=== PATIENT | male | born 1980 | race Caucasian/White ===

== ENCOUNTER 2021-12-12 11:38 | Outpatient (REF) | payer OTHER, SELFPAY ==
--- NOTE | ~2021-12-12 | XR_ITS ---
EXAMINATION: XR SHOULDER, BILATERAL XR CHEST CLINICAL INFORMATION: Pain. COMPARISON: None TECHNIQUE: 4 views each shoulder. 2 views chest x-ray. FINDINGS: RIGHT SHOULDER: There is a small calcification adjacent to lesser trochanter likely calcific bursitis. No visible acute fracture or dislocation seen. The AC joint and the glenoid joint space is maintained normal. The soft tissues are normal. LEFT SHOULDER: The glenohumeral joint and AC joint is intact. No bony erosive changes. There is no visible fracture or dislocation. The soft tissues are normal. CHEST: Both lungs are well expanded and clear of acute process. The heart size and pulmonary vascularity is normal. No gross bony abnormality seen. XR/XR chest 2V IMPRESSION: Calcific bursitis along lesser trochanter right shoulder. There is no visible acute fracture or dislocation seen in either shoulder. Unremarkable chest exam.
--- NOTE | ~2021-12-12 | XR_ITS ---
EXAMINATION: XR SHOULDER, BILATERAL XR CHEST CLINICAL INFORMATION: Pain. COMPARISON: None TECHNIQUE: 4 views each shoulder. 2 views chest x-ray. FINDINGS: RIGHT SHOULDER: There is a small calcification adjacent to lesser trochanter likely calcific bursitis. No visible acute fracture or dislocation seen. The AC joint and the glenoid joint space is maintained normal. The soft tissues are normal. LEFT SHOULDER: The glenohumeral joint and AC joint is intact. No bony erosive changes. There is no visible fracture or dislocation. The soft tissues are normal. CHEST: Both lungs are well expanded and clear of acute process. The heart size and pulmonary vascularity is normal. No gross bony abnormality seen. XR/XR shoulder RT min 2V IMPRESSION: Calcific bursitis along lesser trochanter right shoulder. There is no visible acute fracture or dislocation seen in either shoulder. Unremarkable chest exam.
--- NOTE | ~2021-12-12 | XR_ITS ---
EXAMINATION: XR SHOULDER, BILATERAL XR CHEST CLINICAL INFORMATION: Pain. COMPARISON: None TECHNIQUE: 4 views each shoulder. 2 views chest x-ray. FINDINGS: RIGHT SHOULDER: There is a small calcification adjacent to lesser trochanter likely calcific bursitis. No visible acute fracture or dislocation seen. The AC joint and the glenoid joint space is maintained normal. The soft tissues are normal. LEFT SHOULDER: The glenohumeral joint and AC joint is intact. No bony erosive changes. There is no visible fracture or dislocation. The soft tissues are normal. CHEST: Both lungs are well expanded and clear of acute process. The heart size and pulmonary vascularity is normal. No gross bony abnormality seen. XR/XR shoulder LT min 2V IMPRESSION: Calcific bursitis along lesser trochanter right shoulder. There is no visible acute fracture or dislocation seen in either shoulder. Unremarkable chest exam.
[2021-12-12 11:58] LABS: MANUAL DIFF FLAG NO
[2021-12-12 12:25] LABS: Basophils Percent Auto 0.7 % (0-2); Eosinophils Percent Auto 0.7 % (0-4); Hemoglobin 16.1 g/dl (14.0-18.0); Imm Gran Abs Auto 0.02 X10*3/uL (0.00-0.03); Imm Gran Pct Auto 0.5 % (0.0-0.4); Lymphocytes Absolute Auto 1.3 X10*3/uL (1.2-4.9); Lymphocytes Percent Auto 32.9 % (20-40); Mean Corpuscular HGB Conc 33.5 g/dl (31.0-36.0); Mean Corpuscular Hemoglobin 29.4 pg (27.0-33.0); Mean Corpuscular Volume 87.6 fL (80.0-98.0); Mean Platelet Volume 9.4 fL (9.4-12.4); Monocytes Absolute Auto 0.4 X10*3/uL (0.1-1.2); Monocytes Percent Auto 8.6 % (2-11); Neutrophils Absolute Auto 2.3 x10*3/uL (2.0-8.3); Neutrophils Percent Auto 56.6 % (45-73); Platelet Count 193 X10*3/uL (160-400); Red Blood Count 5.48 X10*6/uL (4.60-5.80); Red Cell Distribution Width 12.8 % (11.0-16.0); White Blood Count 4.1 X10*3/uL (4.8-10.8)
[2021-12-12 12:48] LABS: Alanine Aminotransferase 20 U/L (0-40); Albumin Level 4.3 g/dL (3.5-5.0); Alkaline Phosphatase 73 U/L (39-117); Anion Gap 13 (12-20); Aspartate Amino Transferase 20 U/L (5-37); Bilirubin Total 0.7 mg/dL (0.0-1.0); Blood Urea Nitrogen 20 mg/dL (9-16); C Reactive Protein 0.04 mg/dL (< or = 0.50); Calcium 9.2 mg/dL (8.4-10.2); Carbon Dioxide 28 mmol/L (22-29); Chloride 103 mmol/L (96-108); Estimated Glomerular Filt Rate > 60; Glucose Random 99 mg/dL (60-115); Potassium 4.7 mmol/L (3.3-5.1); Sodium 139 mmol/L (135-145); Total Protein 7.1 g/dL (6.5-8.0)
[2021-12-12 13:06] LABS: Erythrocyte Sedimentation Rate 1 MM/HR (0-15)
[2021-12-12 13:11] LABS: TSH reflex Free T4 0.46 uIU/mL (0.32-4.0)
[2021-12-12 18:15] LABS: CT PCR NOT DETECTED (Not Detect.); NG PCR NOT DETECTED (Not Detect.)
[2021-12-13 03:43] LABS: Syphilis Screen Nonreactive (Nonreactive)
[2021-12-13 04:15] LABS: HBc Num1 0.05 S/CO (0.00-0.79); Hepatitis B Core Antibody Nonreactive (Nonreactive); ~Hepatitis B Surface Antibody NONREACTIVE (Nonreactive)
[2021-12-13 04:20] LABS: HBsAGNum1 0.16 S/CO (0.00-0.99); HIV AB/AG Nonreactive (Nonreactive); HIV Num 1 0.06 S/CO (0.00-0.99); Hepatitis B Surface Antigen Negative (Negative); ~HepC Num1 0.16 S/CO (0.00-0.79); ~Hepatitis C Antibody Nonreactive (Nonreactive)
[2021-12-19 23:22] LABS: HSV 1 IgM IFA Negative (Negative); HSV 2 IgM IFA Negative (Negative)
== END 2021-12-12 11:39 | disposition home or self-care (01) ==
LOC: HO.LAB 11:38
PROVIDERS: PCP Internal Medicine; Visit Provider Internal Medicine
DX: Z11.4 Encounter for screening for human immunodeficiency virus [HIV] (principal); I10 Essential (primary) hypertension; L29.9 Pruritus, unspecified; M25.511 Pain in right shoulder; M25.512 Pain in left shoulder; R05.8 Other specified cough; R21 Rash and other nonspecific skin eruption; Z20.2 Contact with and (suspected) exposure to infections with a predominantly sexual mode of transmission; M79.7 Fibromyalgia; E78.00 Pure hypercholesterolemia, unspecified
CPT/HCPCS: 71046; 73030; 80053; 84443; 85025; 85652; 86140; 86695; 86696; 86704; 86706; 86780; 86803; 87340; 87389; 87491; 87591

== ENCOUNTER 2022-06-13 11:43 | Outpatient (REF) | payer OTHER, SELFPAY ==
--- NOTE | ~2022-06-13 | XR_ITS ---
EXAMINATION: XR HAND, RIGHT CLINICAL INFORMATION: M79.641 - Pain in right hand COMPARISON: None TECHNIQUE: PA, lateral, and oblique views of the right hand. FINDINGS: Normal bony mineralization. No fracture or dislocation. Ulnar variance is neutral. The carpus shows no joint narrowing or erosive change or visible chondrocalcinosis. The MCP and interphalangeal joints show no focal narrowing or erosive change. XR/XR hand RT min 3V IMPRESSION: No focal joint narrowing or erosive change.
--- NOTE | ~2022-06-13 | XR_ITS ---
EXAMINATION: XR CERVICAL SPINE CLINICAL INFORMATION: M43.6 - Torticollis. Pain right hand. COMPARISON: None TECHNIQUE: 4 views of the cervical spine are obtained. FINDINGS: There is straightening of the cervical lordosis with mild rightward tilting secondary to a gentle levocurvature upper thoracic spine. The vertebral bodies are normal in height and there is no vertebral compression, destructive process, or prevertebral soft tissue swelling. The odontoid appears intact. No erosive change. There are degenerative changes C5-C6 and C6-C7 with disc narrowing and vertebral spurring. There is borderline retrolisthesis at C6-C7. XR/XR cervical spine 3V IMPRESSION: 1. Degenerative disc changes C5-C6 and C6-C7 with borderline retrolisthesis C6-C7. 2. No vertebral compression or prevertebral soft tissue swelling.
== END 2022-06-13 11:44 | disposition home or self-care (01) ==
LOC: HO.XRAY 11:43
PROVIDERS: PCP Internal Medicine; Visit Provider Internal Medicine
DX: S69.91XA Unspecified injury of right wrist, hand and finger(s), initial encounter (principal); M43.6 Torticollis; M54.12 Radiculopathy, cervical region
CPT/HCPCS: 72040; 73130

== ENCOUNTER 2022-06-14 09:17 | Outpatient (REF) | payer OTHER, SELFPAY ==
[2022-06-14 11:07] LABS: Appearance Urine Clear; Color Urine Yellow; Glucose Urine UA Negative (Negative); Leukocyte Esterase Urine Negative (Negative); Nitrite Urine Negative (Negative); PH 7.5 (5.0-9.0); Urine Blood Negative (Negative); Urine Ketones Negative (Negative); Urine Protein Negative (Neg-Trace)
[2022-06-14 11:34] LABS: Alanine Aminotransferase 30 U/L (0-40); Albumin Level 4.2 g/dL (3.5-5.0); Alkaline Phosphatase 76 U/L (39-117); Anion Gap 15 (12-20); Aspartate Amino Transferase 28 U/L (5-37); Bilirubin Total 0.4 mg/dL (0.0-1.0); Blood Urea Nitrogen 22 mg/dL (9-16); Carbon Dioxide 30 mmol/L (22-29); Chloride 102 mmol/L (96-108); Cholesterol 207 mg/dL; Estimated Glomerular Filt Rate > 60; Glucose Fasting 90 mg/dL (60-99); HDL Cholesterol 56 mg/dL; LDL Cholesterol Calculated 133 mg/dl; Potassium 4.7 mmol/L (3.3-5.1); Sodium 142 mmol/L (135-145); Triglycerides 90 mg/dL
[2022-06-14 11:56] LABS: Vitamin D 25-OH Total 35.3 ng/mL (>30)
[2022-06-14 12:00] LABS: Folate 5.7 ng/mL (> or = 4.0); Vitamin B12 395 pg/mL (200-900)
== END 2022-06-14 09:18 | disposition home or self-care (01) ==
LOC: HO.LAB 09:17
PROVIDERS: PCP Internal Medicine; Visit Provider Internal Medicine
DX: Z00.00 Encounter for general adult medical examination without abnormal findings (principal); E55.9 Vitamin D deficiency, unspecified; R20.2 Paresthesia of skin; E53.8 Deficiency of other specified B group vitamins; E78.00 Pure hypercholesterolemia, unspecified; R30.0 Dysuria
CPT/HCPCS: 36415; 80053; 80061; 81003; 82306; 82607; 82746

== ENCOUNTER → 2022-11-22 10:19 | Outpatient (BNVA) | payer OTHER, SELFPAY | PROVIDERS: PCP Internal Medicine; Visit Provider Urology | DX: Z01.818 Encounter for other preprocedural examination (principal); Z30.09 Encounter for other general counseling and advice on contraception; F41.8 Other specified anxiety disorders | CPT/HCPCS: 99202 ==

== ENCOUNTER → 2022-12-13 14:24 | Outpatient (BNVA) | payer OTHER, SELFPAY | PROVIDERS: PCP Internal Medicine; Visit Provider Urology | DX: Z30.2 Encounter for sterilization (principal); F41.8 Other specified anxiety disorders | CPT/HCPCS: 55250 ==

== ENCOUNTER 2024-01-22 15:03 | Outpatient (REF) | payer OTHER, SELFPAY ==
[2024-01-22 15:18] LABS: MANUAL DIFF FLAG NO
[2024-01-22 18:01] LABS: Basophils Percent Auto 0.6 % (0-2); Eosinophils Absolute Auto 0.1 X10*3/uL (0.0-0.4); Eosinophils Percent Auto 1.8 % (0-4); Hematocrit 47.4 % (42.0-52.0); Hemoglobin 15.7 g/dl (14.0-18.0); Imm Gran Abs Auto 0.01 X10*3/uL (0.00-0.03); Imm Gran Pct Auto 0.2 % (0.0-0.4); Lymphocytes Absolute Auto 1.6 X10*3/uL (1.2-4.9); Lymphocytes Percent Auto 30.1 % (20-40); Mean Corpuscular HGB Conc 33.1 g/dl (31.0-36.0); Mean Corpuscular Volume 87.5 fL (80.0-98.0); Mean Platelet Volume 9.6 fL (9.4-12.4); Monocytes Absolute Auto 0.4 X10*3/uL (0.1-1.2); Monocytes Percent Auto 6.8 % (2-11); Neutrophils Absolute Auto 3.3 x10*3/uL (2.0-8.3); Neutrophils Percent Auto 60.5 % (45-73); Platelet Count 226 X10*3/uL (160-400); Red Blood Count 5.42 X10*6/uL (4.60-5.80); Red Cell Distribution Width 12.5 % (11.0-16.0); White Blood Count 5.5 X10*3/uL (4.8-10.8)
[2024-01-22 18:57] LABS: Alanine Aminotransferase 41 U/L (0-40); Albumin Level 4.4 g/dL (3.5-5.0); Alkaline Phosphatase 81 U/L (39-117); Anion Gap 15 (12-20); Aspartate Amino Transferase 29 U/L (5-37); Bilirubin Total 0.3 mg/dL (0.0-1.0); Blood Urea Nitrogen 16 mg/dL (9-16); Calcium 9.2 mg/dL (8.4-10.2); Carbon Dioxide 26 mmol/L (22-29); Chloride 102 mmol/L (96-108); Estimated Glomerular Filt Rate > 60; Glucose Random 105 mg/dL (60-115); Magnesium 2.1 mg/dL (1.6-2.6); Potassium 3.9 mmol/L (3.3-5.1); Sodium 139 mmol/L (135-145); Total Protein 7.5 g/dL (6.5-8.0)
[2024-01-22 19:12] LABS: Erythrocyte Sedimentation Rate 2 MM/HR (0-15)
[2024-01-22 19:20] LABS: Vitamin D 25-OH Total 26.3 ng/mL (>30)
== END 2024-01-22 15:04 | disposition home or self-care (01) ==
LOC: HO.LAB 15:03
PROVIDERS: PCP Internal Medicine; Visit Provider Internal Medicine
DX: E83.42 Hypomagnesemia (principal); R25.2 Cramp and spasm; E55.9 Vitamin D deficiency, unspecified
CPT/HCPCS: 36415; 80053; 82306; 83735; 85025; 85652